=== PATIENT | female | born 1935 | race Caucasian/White ===

== ENCOUNTER 2016-08-28 10:50 | Emergency (ER) | payer MEDICARE ==
[~2016-08-28] VITALS: Ht 157.5 cm; Wt 54.5 kg
[~2016-08-28 10:50] MED LIST: ATEN1TAB73 PO; AZOP1SUS BOTH EYES; LATA.005%O OD; LATA.005%O OU; LISI10TA PO; LOMO PO; Lumigan EACH EYE; PRED5SOL PO; PROT40TA PO; QUES4POW2 PO
[2016-08-28 10:53] VITALS: BP 166/71; PULSE 64; RESP 16; TEMP 98.1; O2SAT 98
[2016-08-28] MEDS ORDERED: SIMV5TAB3 PO (11:19)
[2016-08-28] MEDS ORDERED: BRIN1SUS2 EACH EYE (11:36)
[2016-08-28] MEDS ORDERED: LISI10TA PO (11:36)
[2016-08-28] MEDS ORDERED: LATA0.002 EACH EYE (11:36)
[2016-08-28] MEDS ORDERED: ASPI325T PO (11:59)
--- NOTE | 2016-08-28 12:11 | PD ---
HPI Chief Complaint: Neuro Symptoms/ Deficits Time Seen by Provider: 12:00 Travel History International Travel<30 days: No Contact w/Intl Traveler<30days: No Traveled to known affect area: No History of Present Illness HPI This patient is brought in by her daughter.The patient was seen and examined in the presence of the nurse. Somewhere between 1 and 2 months ago this patient started to have some symptoms. She reports that her voice changed and she describes it as raspy. Her daughter says it was slurring. She started dragging her leg when she walked. She denies sensory loss. No headache or head injury. As noted this is been going on for somewhere between 1 and 2 months. There is no acute change today. She came into the ER today because she saw her primary physician 2 days ago and he wanted to get an outpatient CT of the brain and apparently they couldn't get it done quickly so they came here to get that done. No new or acute change in symptoms today. She started taking a full strength aspirin daily and she says the doctor is going to refer her to a neurologist. He also ordered outpatient carotid Dopplers. He was concerned that she had a stroke back then. PFSH Past Medical History Arthritis: Yes Autoimmune Disease: No Blood Disorders: Yes (DVT'S) Heart Rhythm Problems: No Cardiovascular Problems: Yes High Cholesterol: Yes Chest Pain: Yes (partial blockage noted last year no worse) Diminished Hearing: No Endocrine: No Gastrointestinal Disorders: Yes Genitourinary: Yes (kidney tacking rt when 25 yrs old) Hypertension: Yes Immune Disorder: No Kidney Stones: Yes Musculoskeletal: Yes (hands crooked) Psychiatric: No Reproductive: Yes (hysterectomy) ?: Not Menopausal: Yes : 4 Para: 4 Ovarian Cysts: Yes Past Surgical History Abdominal Surgery: Yes (hermelindo,mass removed when 34,) Appendectomy: Yes Cardiac Surgery: Yes (CATH'S) Cholecystectomy: Yes Eye Surgery: Yes (laser rt eye and lt eye x2 glycomia) Genitourinary Surgery: Yes (kidney tacking when 25) Gynecologic Surgery: Yes (hysterectomy) Hysterectomy: Yes Other Surgery: Yes Social History Alcohol Use: Yes (RARELY) Tobacco Use: No Substance Use: No Allergies-Medications (Allergen,Severity, Reaction): Coded Allergies: Benadryl (Verified Allergy, Severe, Irritability/Anxiety, 05/27/12) Penicillin (Verified Allergy, Severe, SWELLS UP, 05/27/12) Reported Meds & Prescriptions Reported Meds & Active Scripts Active Reported Aspirin 325 Mg Tab 325 Mg PO DAILY Lisinopril-Hctz 10-12.5 Mg Tab 1 Tab PO DAILY Latanoprost Opth Drops (Latanoprost) 0.005% Drops 1 Drop EACH EYE HS Refrigerate until opened. Simbrinza Opth Drops (Brinzolamide-Brimonidine Opth Drops) 1-0.2% Susp 1 Drop EACH EYE BID Simvastatin 5 Mg Tab Unknown Dose PO DAILY Review of Systems General / Constitutional: No: Fever Eyes: No: Visual changes HENT: No: Headaches Cardiovascular: No: Chest Pain or Discomfort Respiratory: No: Shortness of Breath Gastrointestinal: No: Abdominal Pain Genitourinary: No: Dysuria Musculoskeletal: No: Pain Skin: No Rash Neurologic: Positive: Weakness, Slurred Speech Psychiatric: No: Depression Endocrine: No: Polydipsia Hematologic/Lymphatic: No: Easy Bruising Physical Exam Narrative GENERAL: Well-nourished, well-developed patient in no apparent distress. SKIN: Focused skin assessment reveals no rash and nodules. Skin is Warm and dry. HEAD: Atraumatic. Normocephalic. EYES: Pupils equal and round. No scleral icterus. No injection or drainage. ENT: No nasal bleeding or discharge. Mucous membranes pink and moist. NECK: Trachea midline. No JVD. CARDIOVASCULAR: Regular rate and rhythm. No murmur appreciated. RESPIRATORY: No accessory muscle use. Clear to auscultation. Breath sounds equal bilaterally. GASTROINTESTINAL: Abdomen soft, non-tender, nondistended. Hepatic and splenic margins not palpable. MUSCULOSKELETAL: No obvious deformities. No clubbing. No cyanosis. No edema. NEUROLOGICAL: Awake and alert. No obvious cranial nerve deficits. Motor grossly within normal limits. Speech is understandable and not slurred. Has an odd tone to it though. Sensation subjectively intact to sharp and light touch PSYCHIATRIC: Appropriate mood and affect; insight and judgment normal. Data Data Last Documented VS Vital Signs Date Time Temp Pulse Resp B/P Pulse Ox O2 Delivery O2 Flow Rate FiO2 08/28/16 10:53 98.1 64 16 166/[address] Brain W/O Iv Contrast(Rout) (08/28/16 ) Iv Access Insert/Monitor (08/28/16 12:03) Complete Blood Count With Diff (08/28/16 12:03) Basic Metabolic Panel (Bmp) (08/28/16 12:03) Environmental Assistant / Telemetry [email or web address] (08/28/16 12:03) Labs Laboratory Tests Test 08/28/16 12:05 White Blood Count 7.4 TH/MM3 Red Blood Count 4.49 MIL/MM3 Hemoglobin 14.1 GM/DL Hematocrit 39.6 % Mean Corpuscular Volume 88.2 FL Mean Corpuscular Hemoglobin 31.3 PG Mean Corpuscular Hemoglobin 35.5 % Concent Red Cell Distribution Width 13.6 % Platelet Count 170 TH/MM3 Mean Platelet Volume 7.3 FL Neutrophils (%) (Auto) 60.0 % Lymphocytes (%) (Auto) 27.0 % Monocytes (%) (Auto) 8.7 % Eosinophils (%) (Auto) 3.5 % Basophils (%) (Auto) 0.8 % Neutrophils # (Auto) 4.5 TH/MM3 Lymphocytes # (Auto) 2.0 TH/MM3 Monocytes # (Auto) 0.6 TH/MM3 Eosinophils # (Auto) 0.3 TH/MM3 Basophils # (Auto) 0.1 TH/MM3 CBC Comment DIFF FINAL Differential Comment Sodium Level 136 MEQ/L Potassium Level 3.9 MEQ/L Chloride Level 100 MEQ/L Carbon Dioxide Level 27.3 MEQ/L Anion Gap 9 MEQ/L Blood Urea Nitrogen 16 MG/DL Creatinine 0.88 MG/DL Estimat Glomerular Filtration 62 ML/MIN Rate Random Glucose 119 MG/DL Calcium Level 9.7 MG/DL MDM Medical Decision Making Medical Screen Exam Complete: Yes Emergency Medical Condition: Yes Medical Record Reviewed: Yes Differential Diagnosis CVA, TIA, atypical migraine Narrative Course I have reviewed the patient's electronic medical record. IV placed CBC is normal Metabolic profile is normal CT brain is normal Extended cardiac monitoring reveals sinus rhythm without ectopy I don't see any objective neurologic deficits. Her chief complaint is change in the sound of her voice. Patient may well have had some degree of small ischemic event one to 2 months ago. Her doctor is a minutes of working it up with brain imaging and carotid Dopplers and neurology referral. I don't see indication for emergent hospitalization today for this problem that is not new or acute. Workup here is negative. Patient should call her primary physician when she gets home to discuss how to go about getting the neurologist follow-up. She will take her aspirin and follow-up with Dopplers as an outpatient and return should she develop any acute worsening or new neurologic findings. I discussed this at length with daughter at bedside Diagnosis Primary Impression: Ischemic stroke without coma Additional Instructions: Get carotid Dopplers as recommended by her doctor as an outpatient Follow-up with primary care and neurology Continue daily aspirin Med/Other Pt SpecificInfo: Other Disposition: 01 DISCHARGE HOME Condition: Stable Yobani Glaser MD August 28, 2016 12:11
[2016-08-28 12:17] LABS: AUTOMATED NEUTROPHIL # 4.5 TH/MM3 (1.8-7.7); BASOPHIL # 0.1 TH/MM3 (0-0.2); BASOPHIL % 0.8 % (0.0-2.0); EOSINOPHIL # 0.3 TH/MM3 (0-0.4); EOSINOPHIL % 3.5 % (0.0-4.0); HEMATOCRIT 39.6 % (35.0-46.0); HEMO FLAGS DIFF FINAL; MEAN CELL VOLUME 88.2 FL (80.0-100.0); MEAN CORPUSCULAR HEMOGLOBIN 31.3 PG (27.0-34.0); MEAN CORPUSCULAR HGB CONC 35.5 % (32.0-36.0); MONO % 8.7 % (0.0-8.0); PLATELET COUNT 170 TH/MM3 (150-450); RED BLOOD COUNT 4.49 MIL/MM3 (4.00-5.30); RED CELL DISTRIBUTION WIDTH 13.6 % (11.6-17.2); WHITE BLOOD COUNT 7.4 TH/MM3 (4.0-11.0)
[2016-08-28 12:34] LABS: BICARBONATE 27.3 MEQ/L (21.0-32.0); POTASSIUM 3.9 MEQ/L (3.5-5.1)
--- NOTE | 2016-08-28 12:51 | RADRPT ---
EXAM DATE/TIME: 08/28/2016 12:27 [facility] COMPARISON: No previous studies available for comparison. INDICATIONS : Difficulty walking and speaking intermittently for 3 weeks RADIATION DOSE: 34.08 CTDIvol (mGy) MEDICAL HISTORY : Cardiovascular disease. Hypertension. DVT SURGICAL HISTORY : None. ENCOUNTER: Initial ACUITY: 3 weeks PAIN SCALE: 0/10 LOCATION: chest TECHNIQUE: Multiple contiguous axial images were obtained of the head. Using automated exposure control and adj ustment of the mA and/or kV according to patient size, radiation dose was kept as low as reasonably a chievable to obtain optimal diagnostic quality images. FINDINGS: CEREBRUM: The ventricles are normal for age. No evidence of midline shift, mass lesion, hemorrhage or acute in farction. No extra-axial fluid collections are seen. POSTERIOR FOSSA: The cerebellum and brainstem are intact. The 4th ventricle is midline. The cerebellopontine angle i s unremarkable. EXTRACRANIAL: The visualized portion of the orbits is intact. SKULL: The calvaria is intact. No evidence of skull fracture. CONCLUSION: Negative exam. No acute intracranial process. Eliud Cook MD on August 28, 2016 at 12:49 Board Certified Radiologist. This report was verified electronically.
== END 2016-08-28 14:28 | disposition home or self-care (01) ==
LOC: NEPE 10:50
DX: I63.9 Cerebral infarction, unspecified (principal); I10 Essential (primary) hypertension; Z79.82 Long term (current) use of aspirin; Z87.442 Personal history of urinary calculi; Z86.718 Personal history of other venous thrombosis and embolism; E78.00 Pure hypercholesterolemia, unspecified
CPT/HCPCS: 70450; 80048; 85025